=== PATIENT | female | born 1970 | race Caucasian/White ===

== ENCOUNTER 2023-04-30 08:52 | Outpatient (CLI) | payer OTHER | END 2023-04-30 08:53 | disposition home or self-care (01) | LOC: CSHMRI 08:52 | PROVIDERS: ATTEND Orthopaedic Surgery | DX: M54.16 Radiculopathy, lumbar region (principal); Z98.890 Other specified postprocedural states; M48.061 Spinal stenosis, lumbar region without neurogenic claudication; M48.07 Spinal stenosis, lumbosacral region; M54.17 Radiculopathy, lumbosacral region | CPT/HCPCS: 72148 ==

== ENCOUNTER 2023-05-28 13:50 | Outpatient (CLI) | payer OTHER ==
[2023-05-28 15:05] LABS: Hematocrit 45.9 % (34.9-44.5); Hemoglobin 15.4 g/dL (12.0-15.5); Mean Corpuscular HGB CONC 33.6 g/dL (32.0-36.0); Mean Corpuscular Hemoglobin 30.4 pg (27.0-33.0); Mean Corpuscular Volume 90.7 fl (81.6-98.3); Mean Platelet Volume 9.5 fl (7.4-10.4); Platelet Count 266 10x3/uL (150-450); RBC Distribution Width 12.8 % (11.5-14.5); Red Blood Cell (RBC) Count 5.06 10x6/uL (3.90-5.03); White Blood Cell (WBC) Count 10.8 10x3/uL (3.5-10.5)
[2023-05-28 15:20] LABS: PTT 28.5 sec (22.0-33.0); Prothrombin Time 10.5 sec (9.5-12.1)
[2023-05-28 15:21] LABS: Anion Gap 16 mmol/L (10-20); BUN (Urea Nitrogen) 4 mg/dL (7.0-18.7); Calc. Creatinine Clearance 0 mL/min (70-130); Calcium 9.9 mg/dL (7.8-10.44); Carbon Dioxide 25 mmol/L (22-29); Chloride 105 mmol/L (98-107); Estimated GFR 82; Glucose 96 mg/dL (70-105); Potassium 3.5 mmol/L (3.5-5.1); Sodium 142 mmol/L (136-145)
== END 2023-05-28 13:51 | disposition home or self-care (01) ==
LOC: CSHLAB 13:50
PROVIDERS: ATTEND Orthopaedic Surgery
DX: Z01.818 Encounter for other preprocedural examination (principal)
CPT/HCPCS: 80048; 83036; 85027; 85610; 85730; 93005; 93010

== ENCOUNTER 2023-11-11 12:12 | Outpatient (CLI) | payer OTHER ==
[2023-11-11 13:32] LABS: Hematocrit 41.5 % (34.9-44.5); Mean Corpuscular HGB CONC 33.7 g/dL (32.0-36.0); Mean Corpuscular Hemoglobin 30.4 pg (27.0-33.0); Mean Corpuscular Volume 90.2 fl (81.6-98.3); Mean Platelet Volume 9.4 fl (7.4-10.4); Platelet Count 228 10x3/uL (150-450); RBC Distribution Width 12.7 % (11.5-14.5); White Blood Cell (WBC) Count 6.2 10x3/uL (3.5-10.5)
[2023-11-11 13:51] LABS: PTT 27.7 sec (22.0-33.0); Prothrombin Time 10.4 sec (9.5-12.1)
[2023-11-11 13:57] LABS: Anion Gap 14 mmol/L (10-20); BUN (Urea Nitrogen) 13 mg/dL (7.0-18.7); Calc. Creatinine Clearance 0 mL/min (70-130); Calcium 9.5 mg/dL (7.8-10.44); Carbon Dioxide 28 mmol/L (22-29); Chloride 103 mmol/L (98-107); Estimated GFR 75; Glucose 94 mg/dL (70-105); Potassium 3.6 mmol/L (3.5-5.1); Sodium 141 mmol/L (136-145)
[2023-11-11 16:44] LABS: Hemoglobin A1c 5.2 % (4.0-6.0)
== END 2023-11-11 12:13 | disposition home or self-care (01) ==
LOC: CSHLAB 12:12
PROVIDERS: ATTEND Orthopaedic Surgery
DX: Z01.818 Encounter for other preprocedural examination (principal); M54.12 Radiculopathy, cervical region
CPT/HCPCS: 80048; 83036; 85027; 85610; 85730; 93005; 93010

== ENCOUNTER 2023-11-11 12:30 | Inpatient (IN) | payer OTHER ==
[2023-11-11 12:40] VITALS: BMI 23.4
[2023-11-20] MEDS ORDERED: PROPOFOL 20 ML ONE (06:34)
[2023-11-20] MEDS ORDERED: fentaNYL 50 mcg/mL 1 mL Vial ONE (06:34)
[2023-11-20] MEDS ORDERED: Dexmedetomidine 200 MCG/2 ML VIAL ONE (06:35)
[2023-11-20] MEDS ORDERED: Ondansetron PF 4 MG/2 ML Vial ONE (06:35)
[2023-11-20] MEDS ORDERED: Propofol 1,000 MG/100 ML VIAL IV ONE (06:35)
[2023-11-20] MEDS ORDERED: SUCCINYLCHOLINE/SOD CL,ISO/PF 200 MG/10 ML SYRINGE FS ONE (06:35)
[2023-11-20] MEDS ORDERED: Dexamethasone 20 MG/5 ML VIAL ONE (06:35)
[2023-11-20] MEDS ORDERED: Lidocaine 1% PF 5 ML VIAL ONE (06:35)
[2023-11-20] MEDS ORDERED: EPINEPHrine 1 MG/ML VIAL ONE (06:36)
[2023-11-20] MEDS ORDERED: Sevoflurane 250 ML INH ANEST BOTTLE ONE (06:36)
[2023-11-20] MEDS ORDERED: Bupivacaine 0.25% HCL 30 ML VIAL ONE (06:37)
[2023-11-20] MEDS ORDERED: CEFAZOLIN 2 GM VIAL ONE (06:40)
[2023-11-20] MEDS ORDERED: Famotidine/PF 20 mg/2ml Vial ONE (06:42)
[2023-11-20] MEDS ORDERED: HYDROmorphone 0.5 MG/0.5 ML SYRINGE ONE ×3 (06:43→09:41)
[2023-11-20] MEDS ORDERED: ePHEDrine Sulfate 50 MG/10 ML VIAL ONE (07:56)
[2023-11-20] MEDS ORDERED: METHOCARBAMOL 750 MG PO PRN (08:49)
[2023-11-20] MEDS ORDERED: traMADol HCl 50 MG TAB PO PRN (08:51)
[2023-11-20] MEDS ORDERED: Communication Order-Pharmacy FS SCH (09:00)
[2023-11-20] MEDS ORDERED: TIRZEPATIDE 15 MG/0.5 ML SQ SCH (09:00)
[2023-11-20] MEDS ORDERED: traMADol HCl 50 MG TAB ONE (13:35)
[2023-11-20] MEDS: Aspirin 81 mg Enteric Coated Tablet PO SCH (15:13)
[2023-11-20] MEDS: Lantus 1000 UNITS/10 ML VIAL SC SCH (15:14)
[2023-11-20] MEDS: ALPRAZolam 0.5 MG TAB PO SCH (15:14)
[2023-11-20] MEDS: traMADol HCl 50 MG TAB PO SCH ×2 (15:14→21:08)
[2023-11-20] MEDS: TETANUS, DIPHTHERIA TOX,ADULT (TDVAX) 0.5 ML VIAL IM ONE (15:15)
[2023-11-20] MEDS: Furosemide 40 MG TAB PO SCH (16:01)
[2023-11-20] MEDS: CEFAZOLIN 2 GM in Sodium Chloride 0.9% 100 ML IVPB SCH (16:01)
[2023-11-20] MEDS ORDERED: Dextrose 5% in Water 1,000 ML IV PRN (19:45)
[2023-11-20] MEDS ORDERED: Glucagon 1 MG/ML KIT IM PRN (19:45)
[2023-11-20] MEDS ORDERED: HumaLOG 300 UNITS/3 ML VIAL SC PRN (19:45)
[2023-11-20] MEDS: Potassium Chloride 20 MEQ TAB PO SCH (21:08)
[2023-11-20] MEDS: Rosuvastatin 10 MG TAB PO SCH (21:09)
[2023-11-20] MEDS: busPIRone HCl 15 MG TAB PO SCH (21:09)
[2023-11-20] MEDS: lamoTRIgine 100 MG TAB PO SCH (21:09)
[2023-11-20] MEDS: Cholecalciferol 1,000 UNITS (25 MCG) TAB PO SCH (21:09)
[2023-11-20] MEDS: Melatonin 3 MG TAB PO SCH (21:10)
[2023-11-20] MEDS: Famotidine 20 MG TAB PO SCH (21:10)
[2023-11-20] MEDS: HYDROcodone/Acetaminophen 10/325 mg Tablet PO PRN (22:17)
[2023-11-21] MEDS: Loratadine 10 MG TAB PO SCH (05:07)
[2023-11-21] MEDS: Levothyroxine Sodium 125 MCG TAB PO SCH (05:07)
[2023-11-21] MEDS ORDERED: EPLERENONE 50 MG PO SCH (06:00)
[2023-11-21] MEDS ORDERED: Aspirin 81 mg Enteric Coated Tablet PO SCH (09:00)
[2023-11-21 12:54] VITALS: BP 135/63; TEMP 97.8
[2023-11-22] MEDS ORDERED: Levothyroxine Sodium 125 MCG TAB PO SCH (06:00)
== END 2023-11-21 12:54 | disposition home or self-care (01) | DRG 473 ==
LOC: CSHTELE 11-20 05:39 → EDSTATUS 11-20 12:30 → CSHTELE 11-20 14:49
PROVIDERS: ADMIT Orthopaedic Surgery; ATTEND Orthopaedic Surgery
PROC: 0RG1071 Fusion of Cervical Vertebral Joint with Autologous Tissue Substitute, Posterior Approach, Posterior Column, Open Approach (ICD-10-PCS; principal; 2023-11-20)
DX: M48.02 Spinal stenosis, cervical region (principal); M54.12 Radiculopathy, cervical region; E78.5 Hyperlipidemia, unspecified; G47.33 Obstructive sleep apnea (adult) (pediatric); G43.909 Migraine, unspecified, not intractable, without status migrainosus; I10 Essential (primary) hypertension; Z90.710 Acquired absence of both cervix and uterus; Z87.891 Personal history of nicotine dependence
CPT/HCPCS: 36416; 72050; 86850; 86900; 86901; 94760; 94762; C1713; C1889; J0171; J0665; J1100; J1170; J1815; J2405; J2704; J3010; J3490; S0028

== ENCOUNTER 2024-02-04 13:29 | Outpatient (CLI) | payer OTHER | END 2024-02-04 13:30 | disposition home or self-care (01) | LOC: CSHMAMMO 13:29 | PROVIDERS: ATTEND Orthopaedic Surgery | DX: Z13.820 Encounter for screening for osteoporosis (principal); N95.9 Unspecified menopausal and perimenopausal disorder | CPT/HCPCS: 77080 ==

== ENCOUNTER 2024-09-01 12:05 | Outpatient (CLI) | payer OTHER | END 2024-09-01 12:06 | disposition home or self-care (01) | LOC: CSHMAMMO 12:05 | PROVIDERS: ATTEND Family Medicine | DX: Z12.31 Encounter for screening mammogram for malignant neoplasm of breast (principal); Z80.3 Family history of malignant neoplasm of breast | CPT/HCPCS: 77063; 77067 ==